=== PATIENT | female | born 1975 | race Caucasian/White ===

== ENCOUNTER 2021-10-01 05:58 | Day surgery (SDC) | payer OTHER ==
[2021-09-28 10:22] LABS: COVID AG,FIA SOURCE NASAL SWAB
[~2021-10-01] VITALS: Ht 157.5 cm; Wt 84.1 kg
[~2021-10-01 05:58] MED LIST: SODIUM CHLORIDE 0.9% 1,000 ML IV ONE
[2021-10-01] MEDS ORDERED: BENZOCAINE 20% 50 MCG/SPRAY 57 GM TP ONE (05:59)
[2021-10-01] MEDS ORDERED: ALBUTEROL SULFATE 2.5 MG/0.5 ML NEB SOLUTION NEB ONE ×3 (05:59→10:30)
[2021-10-01] MEDS ORDERED: LIDOCAINE 4% 50 ML SOLUTION TP ONE (05:59)
[2021-10-01] MEDS ORDERED: LIDOCAINE 2% 5 ML JELLY TP ONE (05:59)
[2021-10-01] MEDS ORDERED: SODIUM CHLORIDE 0.9% 1,000 ML ONE (06:36)
[2021-10-01 07:31] LABS: GLUCOMETER DEV NAME(LOC) SDS.; GLUCOSE,POINT OF CARE 89 MG/DL (70-110)
[2021-10-01] MEDS ORDERED: DULO-114 PO (07:40)
[2021-10-01] MEDS ORDERED: NAPR-1193 PO (07:40)
[2021-10-01] MEDS ORDERED: BECL10.62 PO (07:40)
[2021-10-01] MEDS ORDERED: SUCR1ORA15 PO (07:40)
[2021-10-01] MEDS ORDERED: PRED-729 PO (07:40)
[2021-10-01] MEDS ORDERED: FLUT1BLS12 IH (07:40)
[2021-10-01] MEDS ORDERED: IPRAHFA IH (07:40)
[2021-10-01] MEDS ORDERED: TRAZ-252 PO (07:40)
[2021-10-01] MEDS ORDERED: MONT-40 PO (07:40)
[2021-10-01] MEDS ORDERED: AZIT-84 PO (07:40)
[2021-10-01] MEDS ORDERED: FentaNYL CITRATE PF 100 MCG/2 ML VIAL ONE (07:48)
[2021-10-01] MEDS ORDERED: MIDAZOLAM HCL 5 MG/ML VIAL ONE (07:49)
[2021-10-01] MEDS ORDERED: SODIUM CHLORIDE 0.9% 10 ML ONE (07:52)
[2021-10-01] MEDS ORDERED: MethylPREDNISolone SOD SUCC 125 MG/2 ML VIAL ONE (08:30)
[2021-10-01] MEDS ORDERED: MethylPREDNISolone SOD SUCC 125 MG/2 ML VIAL IVP ONE (09:45)
[2021-10-01] MEDS ORDERED: PROMETHAZINE HCL/CODEINE 6.25-10MG/5ML SYRUP UDCUP PO ONE (10:45)
[2021-10-01] MEDS ORDERED: OXYGEN THERAPY IH SCH (20:00)
== END 2021-10-01 11:20 | disposition home or self-care (01) ==
LOC: SURGERY 05:58
PROVIDERS: ATTEND Internal Medicine Critical Care Medicine
DX: J38.4 Edema of larynx (principal); B37.0 Candidal stomatitis; Z79.899 Other long term (current) drug therapy; J44.9 Chronic obstructive pulmonary disease, unspecified; I69.354 Hemiplegia and hemiparesis following cerebral infarction affecting left non-dominant side; D64.9 Anemia, unspecified
CPT/HCPCS: 31623; 31624; 71045; 82962; 87015; 87070; 87101; 87206; 87220; 87426; 88108; 88184; 88185; 88305; 88312; C9803; J2250; J2930; J3010; J7030; J7613; Z7610